=== PATIENT | female | born 1990 | race Caucasian/White ===

== ENCOUNTER 2023-12-02 10:19 | Emergency (ER) | payer OTHER ==
[~2023-12-02] VITALS: Ht 160 cm; Wt 118.2 kg
[2023-12-02 10:34] VITALS: BP 144/85; PULSE 107; RESP 16; TEMP 98.2
[2023-12-02 10:41] LABS: COVID AG,FIA SOURCE NASAL SWAB
[2023-12-02 10:49] LABS: INFLUENZA TYPE A NEGATIVE FOR TYPE A (NEGATIVE); INFLUENZA TYPE B NEGATIVE FOR TYPE B (NEGATIVE); SARS-COV2 (COVID) ANTIGEN,FIA Negative (Negative)
[2023-12-02] MEDS ORDERED: AMOX500C2 PO (12:13)
== END 2023-12-02 12:37 | disposition home or self-care (01) ==
LOC: EMS 10:19
DX: H66.93 Otitis media, unspecified, bilateral (principal); Z20.822 Contact with and (suspected) exposure to COVID-19
CPT/HCPCS: 87804; 99283